=== PATIENT | female | born 1965 | race Caucasian/White ===

== ENCOUNTER 2016-08-19 21:22 | Emergency (ER) | payer OTHER ==
[~2016-08-19] VITALS: Ht 162.6 cm; Wt 90.0 kg
[2016-08-19 21:25] VITALS: Ht 162.6 cm; Wt 90.0 kg
--- NOTE | 2016-08-20 05:51 | ERD ---
ER Documentation Chief Complaint Date/Time DATE: 08/20/16 TIME: 05:37 Chief Complaint D/C'D [facility] TODAY, C/O SEVERE BUTTOCK ABSCESS PAIN, INTACT IV SL HPI This 50-year-old female presents to emergency department today for evaluation of right gluteal abscess patient was seen admitted and discharged from [facility] on 08/18/2016, has had home health nurse and IV antibiotic Rocephin starting on 08/19/16 to continue until 08/22/16. Also provide wound care as needed. Patient came into emergency department because wound dressing came off instructed to her close. It causes pain and some bleeding. Patient reports being alarmed and not sure what she needed to do. ROS All systems reviewed and are negative except as per history of present illness. PMhx/Soc History of Surgery: Yes (appendectomy and cholecystectomy) Anesthesia Reaction: No Hx Neurological Disorder: Yes (seizures) Hx Respiratory Disorders: No Hx Cardiac Disorders: No Hx Psychiatric Problems: No Hx Miscellaneous Medical Probl: No Hx Alcohol Use: No Hx Substance Use: No Hx Tobacco Use: No Smoking Status: Never smoker Physical Exam Vitals Vitals stable, triage notes reviewed Physical Exam Const: No acute distress Head: Eyes: Normal Conjunctiva, PERRLA, EOMI ENT: Normal External Ears, Nose and Mouth mucous membranes moist Neck: Resp: Cardio: Abd: Soft, non tender, non distended. Normal bowel sounds Skin: Left gluteal presents with open convex wound possibly debrided. Wound is not actively bleeding, no eschar, good pink viable tissue noted wound is circular 3.5 cm x 3.5 cm on erythemic base, tender to palpation. Back: Ext: Neur: Awake and alert Psych: Normal Mood and Affect Procedures/MDM This pleasant 50-year-old female presents to emergency department for reevaluation of surgical wound. Status post incision and drainage at [facility]. Patient has already started receiving home health nursing with dressing changes and IV Rocephin. Patient came to emergency department today because dressing came off, wound stuck to her close and started bleeding. Wound care provided with wet to dry dressing. Patient is afebrile,, patient currently being treated with antibiotics, sepsis, gangrene, not suspected, plan to do dressing change, and discharge patient home to continue course of treatment as outlined by [facility]. Receives Rocephin 1 g every 24 hours over 30 minutes for 4 days via peripheral line. Wound care daily. Patient receives heparin after IV and for revision. Has been discharged home with acetaminophen, Bactroban, [place] with follow-up instruction I feel the patient is stable for discharge and outpatient management as outlined by [facility] follow-up with physician as planned. I have discussed results, examination findings, the treatment plan with the patient and family present prior to discharge. Indications for emergent reevaluation, side effects of medication were also discussed. All questions were answered. Patient verbalizes understanding and agrees with plan of care. Departure Diagnosis: Primary Impression: Wound check, abscess Condition: Good Patient Instructions: Caring for Your Wound Additional Instructions: Thank you for for coming to [facility] for your care today. Please ask your nurse or provider if you have questions about your care today and do not leave until all your questions have been answered. Please use any medications given as directed and follow-up with your doctor (or the doctor you were referred to) in the next 2-3 days. If you do not have a primary care doctor you may follow up at the [facility] (listed below). You may also use motrin and tylenol as needed for fever and/or pain unless instructed otherwise by your provider or nurse. Indications for more urgent follow-up have been discussed, but you may return to the Emergency Department at ANY time for any worrisome or worsening symptoms. If you have abdominal pain, please know that no test or exam you received is perfect and you should follow up within 8 hours for continued pain. If you had any imaging studies today, such as an X-Ray or CT Scan, these studies will be reviewed later by a radiologist. You will be called if there are important findings that were not identified today, so make sure the contact information you provided at registration is correct. If you received any narcotic pain control medicine today, such as Vicodin, Morphine or Dilaudid, your coordination and judgment may be affected for a number of hours. Please do not drive or operate heavy machinery, and you may want someone to assist you at home. If you were given a prescription for narcotic medication, be aware that it is very addictive- use sparingly and only if necessary. ELI HOLLINGSWORTH August 20, 2016 05:48 number of hours. Please do not drive or operate heavy machinery, and you may want someone to assist you at home. If you were given a prescription for narcotic medication, be aware that it is very addictive- use sparingly and only if necessary. ELI HOLLINGSWORTH August 20, 2016 05:48
[2016-08-20 06:07] VITALS: BP 125/72; PULSE 95; RESP 18; TEMP 97.2
== END 2016-08-20 06:04 | disposition home or self-care (01) ==
LOC: FTE 21:22
DX: Z48.01 Encounter for change or removal of surgical wound dressing (principal)
CPT/HCPCS: 99281